=== PATIENT | female | born 1970 | race American Indian/Alaskan Native ===

== ENCOUNTER 2021-05-28 20:46 | Emergency (ER) | payer SELFPAY ==
[2021-05-28] MEDS ORDERED: IBUPROFEN 800 MG TAB PO ONE (23:10)
[2021-05-28] MEDS ORDERED: AMOXICILLIN/K CLAV 875/125MG TAB PO ONE (23:10)
[2021-05-28] MEDS ORDERED: dexAMETHasone 20 MG/5 ML VIAL IM ONE (23:10)
--- NOTE | 2021-05-28 23:17 | Emergency Department Report ---
ED General Adult HPI - General Chief complaint: Sore Throat Stated complaint: SORE THROAT Time Seen by Provider: 05/28/21 23:10 Source: patient Mode of arrival: Ambulatory Limitations: No Limitations - History of Present Illness Initial comments: Patient 50-year-old female who presents for sore throat with dysphagia x2 days. Patient denies fever has chills however. No nausea, there is no vomiting there is no ear pain. She does endorse sinus congestion with clear rhinorrhea.. As are exacerbated by swallowing. Symptoms are relieved by nothing tried. There is no cough no wheezing no stridor. No abdominal pain no nausea vomiting. Severity scale (0 -10): 9 - Related Data Previous Rx's Medication Instructions Recorded Last Taken Type Amoxicillin/Potassium Clav 1 each PO BID 7 Days #14 tablet 05/28/21 Unknown Rx [Augmentin 875-125 Tablet] Ibuprofen [Motrin 800 MG tab] 800 mg PO Q8HR PRN #30 tablet 05/28/21 Unknown Rx Allergies Allergy/AdvReac Type Severity Reaction Status Date / Time No Known Allergies Allergy Unverified 05/28/21 20:55 ED Review of Systems ROS: Stated complaint: SORE THROAT Other details as noted in HPI Constitutional: chills Eyes: denies: eye pain, eye discharge, vision change ENT: throat pain, congestion. denies: ear pain Respiratory: denies: cough, shortness of breath, wheezing Cardiovascular: denies: chest pain, palpitations Endocrine: no symptoms reported Gastrointestinal: denies: abdominal pain, nausea, diarrhea Genitourinary: denies: urgency, dysuria, discharge Musculoskeletal: denies: back pain, joint swelling, arthralgia Skin: denies: rash, lesions Neurological: denies: headache, weakness, paresthesias, vertigo Psychiatric: denies: anxiety, depression Hematological/Lymphatic: denies: easy bleeding, easy bruising ED Past Medical Hx - Medications Home Medications: Home Medications Medication Instructions Recorded Confirmed Last Taken Type Amoxicillin/Potassium Clav 1 each PO BID 7 Days #14 tablet 05/28/21 Unknown Rx [Augmentin 875-125 Tablet] Ibuprofen [Motrin 800 MG tab] 800 mg PO Q8HR PRN #30 tablet 05/28/21 Unknown Rx ED Physical Exam - General Limitations: No Limitations General appearance: alert, in no apparent distress - Head Head exam: Present: normocephalic, normal inspection - Eye Eye exam: Present: PERRL, EOMI. Absent: conjunctival injection, nystagmus Pupils: Present: normal accommodation - ENT ENT exam: Present: mucous membranes moist, TM's normal bilaterally, normal external ear exam - Expanded ENT Exam Expanded Throat exam: Positive: tonsillar erythema, tonsillomegaly, tonsillar exudate, other (uvula midline no lesions no peritonsilar abscess airway is patent ). Negative: R peritonsillar mass, L peritonsillar mass - Neck Neck exam: Present: normal inspection, full ROM, lymphadenopathy. Absent: tenderness, meningismus, thyromegaly - Respiratory Respiratory exam: Absent: respiratory distress, wheezes, stridor, chest wall tenderness - Cardiovascular Cardiovascular Exam: Present: regular rate, normal rhythm, normal heart sounds. Absent: systolic murmur, diastolic murmur, rubs, gallop - GI/Abdominal GI/Abdominal exam: Present: soft, normal bowel sounds. Absent: distended, tenderness - Rectal Rectal exam: Present: deferred - Extremities Exam Extremities exam: Present: normal inspection, full ROM - Back Exam Back exam: Present: normal inspection, full ROM. Absent: CVA tenderness (R), CVA tenderness (L) - Neurological Exam Neurological exam: Present: alert, oriented X3 - Psychiatric Psychiatric exam: Present: normal affect, normal mood - Skin Skin exam: Present: warm, dry, intact, normal color. Absent: rash ED Course Vital Signs 05/28/21 20:53 Temperature 99.8 F H Pulse Rate 81 Respiratory 18 Rate Blood Pressure 169/92 [Left] O2 Sat by Pulse 98 Oximetry ED Medical Decision Making - Medical Decision Making This is pharyngitis, patient declines rapid strep test. Plan DC to home, NSAIDs as needed pain hydrate as directed, follow-up with your doctor in 2 to 3 days. Patient verbalized agreement and understanding with discharge plan. Patient DC'd home in stable condition at this time. Critical care attestation.: If time is entered above; I have spent that time in minutes in the direct care of this critically ill patient, excluding procedure time. ED Disposition Clinical Impression: Pharyngitis Qualifiers: Pharyngitis/tonsillitis etiology: unspecified etiology Qualified Code(s): J02.9 - Acute pharyngitis, unspecified Disposition: 01 HOME / SELF CARE / HOMELESS Is pt being admited?: No Does the pt Need Aspirin: No Condition: Stable Instructions: Pharyngitis Additional Instructions: Take medications as prescribed, follow-up with your doctor in 2 to 3 days. Prescriptions: Amoxicillin/Potassium Clav [Augmentin 875-125 Tablet] 1 each PO BID 7 Days #14 tablet Ibuprofen [Motrin 800 MG tab] 800 mg PO Q8HR PRN #30 tablet PRN Reason: pain Referrals: JACINDA MORALES MD [Staff Physician] - 3-5 Days Forms: Work/School Release Form(ED) Time of Disposition: 23:17
[2021-05-29] VITALS: BP 152/87
== END 2021-05-28 23:58 | disposition home or self-care (01) ==
LOC: ED 20:46
DX: J02.9 Acute pharyngitis, unspecified (principal); Z79.899 Other long term (current) drug therapy
CPT/HCPCS: 96372; 99282; J1100

== ENCOUNTER 2021-07-12 21:24 | Inpatient (IN) | payer SELFPAY ==
[2021-07-12] MEDS ORDERED: HEPARIN 10,000 UNITS/10 ML VIAL IV ONE (21:27)
[2021-07-12] MEDS ORDERED: HEPARIN 10,000 UNITS/10 ML VIAL IV PRN (21:27)
[2021-07-12] MEDS ORDERED: SODIUM CHLORIDE 0.9% 500 ML 500 ML IV ONE (21:29)
[2021-07-12] MEDS ORDERED: MORPHINE 4 MG/1 ML INJ IV ONE (21:29)
--- NOTE | 2021-07-12 21:34 | Emergency Department Report ---
ED Chest Pain HPI - General Chief Complaint: Chest Pain Stated Complaint: CHEST PAIN Time Seen by Provider: 07/12/21 21:26 Source: patient, EMS (Verbal report received from emergency medical services. EMS documentation not available at time of chart dictation ), RN notes reviewed Mode of arrival: Stretcher Limitations: No Limitations - History of Present Illness Initial Comments: The patient was evaluated in the emergency department for symptoms described in the history of present illness. He/she was evaluated in the context of the global COVID-19 pandemic, which necessitated consideration that the patient might be at risk for infection with the virus that causes COVID-19. Institutional protocols and algorithms that pertain to the evaluation of patients at risk for COVID-19 are in a state of rapid change based on information released by regulatory bodies including the CDC and federal and state organizations. These policies and algorithms were followed during the patient's care in the emergency department. Please note that these policies, procedures and recommendations changed on a rapid basis. This patient is a 50-year-old female who reports that she is not , who denies chronic medical conditions, who is brought to the hospital by emergency medical services with complaint of central chest pain that radiates to the left neck. As per EMS verbal report, prehospital EKGs initially not consistent with STEMI. Patient has persistent pain, so EMS obtains additional prehospital EKG, last prehospital EKG is consistent with STEMI, completed at 21: 21 The EKG is transmitted to our fork assembler, Dr. Valerio. He agrees with activation of the cardiac catheterization lab. EMS provided this patient with aspirin nitroglycerin in the field, prior to development of inferior wall STEMI on serial EKGs. Cardiology recommended 600 mg of Plavix, as well as heparin. Extensive discussion had with patient regarding nature and diagnosis of STEMI, and time sensitive nature. Multiple discussions were had with the patient by myself, and by nursing team, regarding importance of cardiac catheterization in this particular disease context. Specific risks of refusing cardiac catheterization, which patient is initially considering, including , disability, paralysis, loss of quality of life and permanent cardiac disability were discussed with the patient who articulated understanding in her own words. Patient admitted to the medical service under the care of Dr. Duncan, Critical care physician, Dr. Keys, will follow in consultation in the critical care unit. Complaint: chest pain -: Sudden Onset: during rest Pain Location: substernal, left chest Pain Radiation: neck Aspirin use within the Past 7 Days: (1) Yes (given aspirin by ems) - Related Data On Oral Contraceptives: No Previous Rx's Medication Instructions Recorded Last Taken Type Amoxicillin/Potassium Clav 1 each PO BID 7 Days #14 tablet 05/28/21 Unknown Rx [Augmentin 875-125 Tablet] Ibuprofen [Motrin 800 MG tab] 800 mg PO Q8HR PRN #30 tablet 05/28/21 Unknown Rx Allergies Allergy/AdvReac Type Severity Reaction Status Date / Time No Known Allergies Allergy Verified 07/12/21 21:32 Heart Score - HEART Score History: Highly suspicious EKG: Significant ST-depression Age: 45-65 Risk factors: No known risk factors Troponin: < normal limit HEART Score: 5 - EKG Read Time Time EKG Completed: 21:23 EKG Read Time: 23:23 ED Review of Systems ROS: Stated complaint: CHEST PAIN Other details as noted in HPI Constitutional: malaise ENT: denies: congestion Cardiovascular: chest pain Gastrointestinal: denies: abdominal pain, vomiting, hematemesis, melena, hematochezia Neurological: weakness Psychiatric: anxiety ED Past Medical Hx - Past Medical History Previous Medical History?: No - Medications Home Medications: Home Medications Medication Instructions Recorded Confirmed Last Taken Type Amoxicillin/Potassium Clav 1 each PO BID 7 Days #14 tablet 05/28/21 Unknown Rx [Augmentin 875-125 Tablet] Ibuprofen [Motrin 800 MG tab] 800 mg PO Q8HR PRN #30 tablet 05/28/21 Unknown Rx ED Physical Exam - General Limitations: No Limitations General appearance: alert, anxious, obese - Head Head exam: Present: atraumatic, normocephalic - Eye Eye exam: Present: normal appearance, EOMI. Absent: nystagmus - ENT ENT exam: Present: normal exam, normal orophraynx, mucous membranes moist, normal external ear exam - Neck Neck exam: Present: normal inspection, full ROM. Absent: tenderness, meningismus - Respiratory Respiratory exam: Present: normal lung sounds bilaterally. Absent: respiratory distress, wheezes, rales, rhonchi, stridor, decreased breath sounds - Cardiovascular Cardiovascular Exam: Present: regular rate, normal rhythm, normal heart sounds. Absent: bradycardia, tachycardia, irregular rhythm, systolic murmur, diastolic murmur, rubs, gallop - GI/Abdominal GI/Abdominal exam: Present: soft. Absent: distended, tenderness, guarding, rebound, rigid, pulsatile mass - Extremities Exam Extremities exam: Present: normal inspection, full ROM, other (2+ pulses noted in the bilateral upper and lower extremities. There is no palpable cord. negative Homans sign. Muscular compartments are soft. The pelvis is stable.). Absent: pedal edema, calf tenderness - Back Exam Back exam: Present: normal inspection. Absent: tenderness, CVA tenderness (R), CVA tenderness (L), paraspinal tenderness, vertebral tenderness - Neurological Exam Neurological exam: Present: alert, oriented X3, other (No facial droop. Tongue midline. Extraocular movements intact bilaterally. Facial sensation intact to light touch in V1, V2, V3 distribution bilaterally. 5 and a 5 strength in 4 extremities. Sensation intact to light touch in 4 extremities.) - Psychiatric Psychiatric exam: Present: anxious - Skin Skin exam: Present: warm, dry, intact, normal color. Absent: rash ED Course Vital Signs 07/12/21 21:32 Temperature 98.1 F Pulse Rate 78 Respiratory 18 Rate Blood Pressure 134/94 [Left] O2 Sat by Pulse 98 Oximetry SUKH score - Sukh Score Age > 65: (0) No Aspirin use within the Past 7 Days: (1) Yes 3 or more CAD Risk Factors: (0) No 2 or more Angina events in past 24 hrs: (1) Yes Known CAD with more than 50% Stenosis: (0) No Elevated Cardiac Markers: (0) No ST Deviation Greater than 0.5mm: (1) Yes SUKH Score: 3 ED Medical Decision Making - Lab Data Result diagrams: 07/12/21 21:43 07/12/21 21:43 Vital Signs 07/12/21 21:32 Temperature 98.1 F Pulse Rate 78 Respiratory 18 Rate Blood Pressure 134/94 [Left] O2 Sat by Pulse 98 Oximetry Vital Signs 07/12/21 21:32 Temperature 98.1 F Pulse Rate 78 Respiratory 18 Rate Blood Pressure 134/94 [Left] O2 Sat by Pulse 98 Oximetry Lab Results 07/12/21 07/12/21 07/12/21 Range/Units 21:43 21:43 21:43 WBC 5.2 (4.5-11.0) K/mm3 RBC 4.97 (3.65-5.03) M/mm3 Hgb 11.8 (10.1-14.3) gm/dl Hct 38.8 (30.3-42.9) % MCV 78 L (79-97) fl MCH 24 L (28-32) pg MCHC 30 (30-34) % RDW 18.2 H (13.2-15.2) % Plt Count 225 (140-440) K/mm3 Lymph % (Auto) 35.7 H (13.4-35.0) % Coffee % (Auto) 7.2 (0.0-7.3) % Eos % (Auto) 3.0 (0.0-4.3) % Baso % (Auto) 0.9 (0.0-1.8) % Lymph # (Auto) 1.8 (1.2-5.4) K/mm3 Coffee # (Auto) 0.4 (0.0-0.8) K/mm3 Eos # (Auto) 0.2 (0.0-0.4) K/mm3 Baso # (Auto) 0.0 (0.0-0.1) K/mm3 Seg Neutrophils % 53.2 (40.0-70.0) % Seg Neutrophils # 2.7 (1.8-7.7) K/mm3 PT 14.4 (12.2-14.9) Sec. INR 1.01 (0.87-1.13) APTT 33.7 (24.2-36.6) Sec. Sodium 144 (137-145) mmol/L Potassium 3.5 L (3.6-5.0) mmol/L Chloride 107.1 H (98-107) mmol/L Carbon Dioxide 25 (22-30) mmol/L Anion Gap 15 mmol/L BUN 9 (7-17) mg/dL Creatinine 0.7 (0.6-1.2) mg/dL Estimated GFR > 60 ml/min BUN/Creatinine Ratio 13 % Glucose 89 (65-100) mg/dL Calcium 8.9 (8.4-10.2) mg/dL Total Bilirubin 0.30 (0.1-1.2) mg/dL AST 49 H (5-40) units/L ALT 47 (7-56) units/L Alkaline Phosphatase 73 (35-129) units/L Total Creatine Kinase 85 (30-135) units/L CK-MB (CK-2) 1.4 (0.0-4.0) ng/mL CK-MB (CK-2) Rel Index 1.6 (0-4) Troponin T < 0.010 (0.00-0.029) ng/mL Total Protein 7.2 (6.3-8.2) g/dL Albumin 3.9 (3.9-5) g/dL Albumin/Globulin Ratio 1.2 % HCG, Quant (0-4) mIU/mL Blood Type Antibody Screen 07/12/21 07/12/21 Range/Units 21:43 21:43 WBC (4.5-11.0) K/mm3 RBC (3.65-5.03) M/mm3 Hgb (10.1-14.3) gm/dl Hct (30.3-42.9) % MCV (79-97) fl MCH (28-32) pg MCHC (30-34) % RDW (13.2-15.2) % Plt Count (140-440) K/mm3 Lymph % (Auto) (13.4-35.0) % Coffee % (Auto) (0.0-7.3) % Eos % (Auto) (0.0-4.3) % Baso % (Auto) (0.0-1.8) % Lymph # (Auto) (1.2-5.4) K/mm3 Coffee # (Auto) (0.0-0.8) K/mm3 Eos # (Auto) (0.0-0.4) K/mm3 Baso # (Auto) (0.0-0.1) K/mm3 Seg Neutrophils % (40.0-70.0) % Seg Neutrophils # (1.8-7.7) K/mm3 PT (12.2-14.9) Sec. INR (0.87-1.13) APTT (24.2-36.6) Sec. Sodium (137-145) mmol/L Potassium (3.6-5.0) mmol/L Chloride (98-107) mmol/L Carbon Dioxide (22-30) mmol/L Anion Gap mmol/L BUN (7-17) mg/dL Creatinine (0.6-1.2) mg/dL Estimated GFR ml/min BUN/Creatinine Ratio % Glucose (65-100) mg/dL Calcium (8.4-10.2) mg/dL Total Bilirubin (0.1-1.2) mg/dL AST (5-40) units/L ALT (7-56) units/L Alkaline Phosphatase (35-129) units/L Total Creatine Kinase (30-135) units/L CK-MB (CK-2) (0.0-4.0) ng/mL CK-MB (CK-2) Rel Index (0-4) Troponin T (0.00-0.029) ng/mL Total Protein (6.3-8.2) g/dL Albumin (3.9-5) g/dL Albumin/Globulin Ratio % HCG, Quant < 2 (0-4) mIU/mL Blood Type A POSITIVE Antibody Screen Negative - EKG Data -: EKG Interpreted by Ok EKG shows normal: sinus rhythm - EKG Data When compared to previous EKG there are: previous EKG unavailable Interpretation: acute AL 07/12/21 21:33 The EKG is interpreted at 2122 The EKG is consistent with STEMI. Sinus rhythm, 71 bpm. Normal axis, normal P wave axis, motion artifact. Inferior wall STEMI. Questionable lateral wall involvement. No prior for comparison - Radiology Data Radiology results: report reviewed, image reviewed CHEST 1 VIEW INDICATION / CLINICAL INFORMATION: chest pain STUDY TIME: 2130 COMPARISON: 10/05/2009 FINDINGS: SUPPORT DEVICES: None HEART / MEDIASTINUM: Heart size appears within normal limits. Large calcified right peritracheal node is seen in calcified right hilar nodes are noted, findings unchanged. LUNGS / PLEURA: No significant acute pulmonary or pleural abnormality. No pneumothorax. ADDITIONAL FINDINGS: No significant additional findings. Signer Name: Flash Reaves MD Signed: 07/12/2021 8:58 PM Workstation Name: [id number] - Medical Decision Making Differential diagnosis, including but not limited to: STEMI, Prinzmetal angina, pericarditis, myocarditis Assessment and plan: 50-year-old female with probable inferior wall STEMI. Patient given aspirin and nitroglycerin by EMS in the field. Blood pressure acceptable at this time. Medicate with Plavix, heparin, morphine and Zofran. Start heparin drip. Admit patient to the critical care unit after cardiac evaluation. Patient en route to the cardiac catheterization lab. Laboratory studies have not resulted as of this time. Given time sensitive nature of STEMI, we will defer to the inpatient team to follow-up on laboratory studies. Patient endorsed reticence to receive cardiac catheterization. Myself and multiple nurses discussed the importance of cardiac catheterization in the context of STEMI to this patient. Also discussed the time sensitive nature of STEMI. At this point time, it appears that the patient is agreeable to catheterization. Critical Care Time: Yes Critical care time in (mins) excluding proc time.: 35 Critical care attestation.: If time is entered above; I have spent that time in minutes in the direct care of this critically ill patient, excluding procedure time. ED Disposition Clinical Impression: STEMI (ST elevation myocardial infarction) Disposition: ADMITTED INPATIENT Is pt being admited?: Yes Does the pt Need Aspirin: No (given by ems) Condition: Critical
[2021-07-12] MEDS: CLOPIDOGREL 300 MG TAB PO ONE (21:44)
[2021-07-12] MEDS: ONDANSETRON 4 MG/2 ML INJ IV ONE (21:44)
[2021-07-12] MEDS ORDERED: MORPHINE 2 MG/1 ML INJ IV PRN (21:51)
[2021-07-12] MEDS ORDERED: NITROGLYCERIN 0.4 MG TAB SUBL SL PRN (21:51)
[2021-07-12] MEDS ORDERED: ALBUTEROL 2.5 MG/3 ML NEBU IH PRN (21:51)
[2021-07-12] MEDS ORDERED: HYDROmorphone 1 MG/1 ML INJ IV PRN (21:51)
[2021-07-12] MEDS ORDERED: ONDANSETRON 4 MG/2 ML INJ IV PRN (21:51)
[2021-07-12] MEDS ORDERED: ACETAMINOPHEN 325 MG TAB PO PRN (21:51)
--- NOTE | 2021-07-12 21:59 | History and Physical Report ---
History of Present Illness Date of examination: 07/12/21 Date of admission: 07/12/21 Chief complaint: Chest pain History of present illness: 50 years old female with unknown past medical history was brought to the emergency room because of crushing chest pain. Patient complaining of 10/10 left-sided chest pain which is crushing in nature for last couple of minutes. central chest pain that radiates to the left neck. The EKG is consistent with STEMI. Sinus rhythm, 71 bpm. Normal axis, normal P wave axis, motion artifact. Inferior wall STEMI. Questionable lateral wall involvement. No prior for comparison Code STEMI was called patient EKG shows suggest the above ST elevation SD in the inferior lead. Subsequently Case discussed with on-call cardiology Dr. mega ramirez. Subsequently patient was brought to the Mine [facility] and patient is status post cardiac cath which shows normal coronaries as per cardiology Medications and Allergies Allergies Allergy/AdvReac Type Severity Reaction Status Date / Time No Known Allergies Allergy Verified 07/12/21 21:32 Home Medications Medication Instructions Recorded Confirmed Last Taken Type Amoxicillin/Potassium Clav 1 each PO BID 7 Days #14 tablet 05/28/21 Unknown Rx [Augmentin 875-125 Tablet] Ibuprofen [Motrin 800 MG tab] 800 mg PO Q8HR PRN #30 tablet 05/28/21 Unknown Rx Active Meds: Active Medications Acetaminophen (Acetaminophen 325 Mg Tab) 650 mg PO Q4H PRN PRN Reason: Pain MILD(1-3)/Fever >100.5/HUGHES Albuterol (Albuterol 2.5 Mg/3 Ml Nebu) 2.5 mg IH Q3HRT PRN PRN Reason: Shortness Of Breath Albuterol/Ipratropium (Ipratropium/Albuterol Sulfate 3 Ml Ampul.Neb) 1 ampul IH Q6HRT OK Atorvastatin Calcium (Atorvastatin 40 Mg Tab) 40 mg PO QHS OK Heparin Sodium (Porcine) (Heparin 10,000 Units/10 Ml Vial) 0 unit IV Q6H PRN; Protocol PRN Reason: Anti-Xa Assay less than 0.1 un Hydromorphone HCl (Hydromorphone 1 Mg/1 Ml Inj) 0.5 mg IV Q3H PRN PRN Reason: Pain , Severe (7-10) Heparin Sodium/Sodium Chloride (Heparin/ 0.45% Nacl-25,000 Unit/500 Ml) 25,000 unit in 500 mls @ 20 mls/hr IV TITRATE OK; Protocol Last Admin: 07/12/21 21:45 Dose: 1,000 units/hr, 20 mls/hr Sodium Chloride (Nacl 0.9% 500 Ml) 500 mls @ 999 mls/hr IV ONCE ONE Stop: 07/12/21 21:59 Last Admin: 07/12/21 21:44 Dose: 999 mls/hr Sodium Chloride (Nacl 0.9% 1000 Ml) 1,000 mls @ 100 mls/hr IV DIRECT OK Morphine Sulfate (Morphine 2 Mg/1 Ml Inj) 2 mg IV Q4H PRN PRN Reason: Pain, Moderate (4-6) Nitroglycerin (Nitroglycerin 0.4 Mg Tab Subl) 0.4 mg SL .Q5MIN PRN PRN Reason: Chest Pain Ondansetron HCl (Ondansetron 4 Mg/2 Ml Inj) 4 mg IV Q8H PRN PRN Reason: Nausea And Vomiting Review of Systems All systems: negative Cardiovascular: chest pain, shortness of breath Exam - Constitutional Vitals: Temp Pulse Resp BP Pulse Ox 98.1 F 78 18 134/94 98 07/12/21 21:32 07/12/21 21:32 07/12/21 21:32 07/12/21 21:32 07/12/21 21:32 General appearance: Present: no acute distress, well-nourished - EENT Eyes: Present: PERRL ENT: hearing intact, clear oral mucosa - Neck Neck: Present: supple, normal ROM - Respiratory Respiratory effort: normal Respiratory: bilateral: CTA - Cardiovascular Heart Sounds: Present: S1 & S2. Absent: rub, click - Extremities Extremities: pulses symmetrical, No edema Peripheral Pulses: within normal limits - Abdominal General gastrointestinal: Present: soft, non-tender, non-distended, normal bowel sounds Female genitourinary: Present: normal - Integumentary Integumentary: Present: clear, warm, dry - Musculoskeletal Musculoskeletal: gait normal, strength equal bilaterally - Psychiatric Psychiatric: appropriate mood/affect, intact judgment & insight - Neurologic Neurologic: CNII-XII intact, moves all extremities HEART Score - HEART Score EKG: Significant ST-depression Age: 45-65 Risk factors: No known risk factors Results - Labs CBC & Chem 7: 07/12/21 21:43 07/12/21 21:43 Assessment and Plan VTE prophylaxis?: Chemical Plan of care discussed with patient/family: Yes - Patient Problems (1) STEMI (ST elevation myocardial infarction) Current Visit: Yes Status: Acute Plan to address problem: Admit the patient to the critical care unit. NPO. Normal saline at the rate of 100 cc/h. Plavix 600 mg p.o. x1 dose. Patient is on heparin drip. Patient is status post emergent heart cath showed normal coronaries. Cardiology evaluation we also consult critical care evaluation. Follow serial cardiac enzyme. Echocardiogram. (2) DVT prophylaxis Current Visit: Yes Status: Acute Plan to address problem: Heparin drip for DVT prophylaxis. Pepcid 20 mg p.o. twice daily for GI prophylaxis. Patient is a full code
[2021-07-12] MEDS ORDERED: HEPARIN/ 0.45% NACL DRIP 25,000 UNIT/500 ML BAG IV SCH (22:00)
[2021-07-12] MEDS ORDERED: SODIUM CHLORIDE 0.9% 1000 ML 1,000 ML IV SCH (22:00)
[2021-07-12] MEDS ORDERED: NITROGLYCERIN SYRINGE 3 ML ONE (22:02)
[2021-07-12] MEDS ORDERED: LIDOCAINE (2%) 20 MG/1 ML VIAL 20 ML MDV INFILTRATI ONE (22:02)
[2021-07-12] MEDS ORDERED: MIDAZOLAM 2 MG/2 ML INJ ONE (22:02)
[2021-07-12] MEDS ORDERED: VERAPAMIL 5 MG/2 ML INJ ONE (22:02)
[2021-07-12] MEDS ORDERED: HEPARIN/NS 5000 UNIT/500ML 1,000 ML IR ONE (22:02)
[2021-07-12] MEDS ORDERED: HEPARIN 10,000 UNITS/10 ML VIAL ONE (22:02)
[2021-07-12] MEDS ORDERED: fentaNYL 100 MCG/2 ML INJ ONE (22:02)
--- NOTE | 2021-07-12 22:02 | XRay Report ---
CHEST 1 VIEW INDICATION / CLINICAL INFORMATION: chest pain STUDY TIME: 2130 COMPARISON: 10/05/2009 FINDINGS: SUPPORT DEVICES: None HEART / MEDIASTINUM: Heart size appears within normal limits. Large calcified right peritracheal node is seen in calcified right hilar nodes are noted, findings unchanged. LUNGS / PLEURA: No significant acute pulmonary or pleural abnormality. No pneumothorax. ADDITIONAL FINDINGS: No significant additional findings. Signer Name: Flash Reaves MD Signed: 07/12/2021 9:58 PM Workstation Name: [id number]
[2021-07-12 22:16] LABS: Basophils % (Auto) 0.9 % (0.0-1.8); Eosinophils # (Auto) 0.2 K/mm3 (0.0-0.4); Lymphocytes # (Auto) 1.8 K/mm3 (1.2-5.4); Lymphocytes % (Auto) 35.7 % (13.4-35.0); Mean Corpuscular HGB Conc 30 % (30-34); Mean Corpuscular Volume 78 fl (79-97); Monocytes # (Auto) 0.4 K/mm3 (0.0-0.8); Monocytes % (Auto) 7.2 % (0.0-7.3); Platelet Count 225 K/mm3 (140-440); Red Blood Count 4.97 M/mm3 (3.65-5.03); Red Cell Distribution Width 18.2 % (13.2-15.2)
[2021-07-12 22:19] LABS: Hematocrit 38.8 % (30.3-42.9); Hemoglobin 11.8 gm/dl (10.1-14.3)
[2021-07-12] MEDS ORDERED: SODIUM CHLORIDE 0.9% 500 ML 500 ML ONE (22:29)
[2021-07-12 22:30] LABS: INR 1.01 (0.87-1.13); Partial Thromboplastin Time 33.7 Sec. (24.2-36.6)
[2021-07-12] MEDS ORDERED: fentaNYL 100 MCG/2 ML INJ IV ONE ×2 (22:30→22:34)
[2021-07-12] MEDS ORDERED: CLOPIDOGREL 300 MG TAB ONE (22:32)
[2021-07-12] MEDS ORDERED: MIDAZOLAM 2 MG/2 ML INJ IV ONE (22:34)
[2021-07-12 22:45] LABS: Alanine Aminotransferase 47 units/L (7-56); Albumin 3.9 g/dL (3.9-5); Blood Urea Nitrogen 9 mg/dL (7-17); Calcium 8.9 mg/dL (8.4-10.2); Creatine Kinase MB 1.4 ng/mL (0.0-4.0); Hemolysis Index 7
[2021-07-12 22:52] LABS: BUN/Creatinine Ratio 13
[2021-07-12] MEDS ORDERED: traMADol 50 MG TAB PO PRN (23:01)
--- NOTE | 2021-07-12 23:06 | Consultation ---
History of Present Illness Consult date: 07/12/21 Consult reason: chest pain History of present illness: 50-year-old woman with no prior cardiac history who presented to the emergency room with chest pain, ECG showed ST elevations in the inferolateral leads. STEMI protocol was activated. Emergency cardiac catheterization revealed angiographically normal coronary arteries, normal left ventricular systolic function with ejection fraction greater than 65%. Past History Past Medical History: No medical history Medications and Allergies Allergies Allergy/AdvReac Type Severity Reaction Status Date / Time No Known Allergies Allergy Verified 07/12/21 21:32 Home Medications Medication Instructions Recorded Confirmed Last Taken Type Amoxicillin/Potassium Clav 1 each PO BID 7 Days #14 tablet 05/28/21 Unknown Rx [Augmentin 875-125 Tablet] Ibuprofen [Motrin 800 MG tab] 800 mg PO Q8HR PRN #30 tablet 05/28/21 Unknown Rx Active Meds: Active Medications Acetaminophen (Acetaminophen 325 Mg Tab) 650 mg PO Q4H PRN PRN Reason: Pain MILD(1-3)/Fever >100.5/HUGHES Albuterol (Albuterol 2.5 Mg/3 Ml Nebu) 2.5 mg IH Q3HRT PRN PRN Reason: Shortness Of Breath Albuterol/Ipratropium (Ipratropium/Albuterol Sulfate 3 Ml Ampul.Neb) 1 ampul IH Q6HRT OK Atorvastatin Calcium (Atorvastatin 40 Mg Tab) 40 mg PO QHS OK Hydromorphone HCl (Hydromorphone 1 Mg/1 Ml Inj) 0.5 mg IV Q3H PRN PRN Reason: Pain , Severe (7-10) Sodium Chloride (Nacl 0.9% 1000 Ml) 1,000 mls @ 100 mls/hr IV DIRECT OK Stop: 07/13/21 03:59 Morphine Sulfate (Morphine 2 Mg/1 Ml Inj) 2 mg IV Q4H PRN PRN Reason: Pain, Moderate (4-6) Nitroglycerin (Nitroglycerin 0.4 Mg Tab Subl) 0.4 mg SL .Q5MIN PRN PRN Reason: Chest Pain Ondansetron HCl (Ondansetron 4 Mg/2 Ml Inj) 4 mg IV Q8H PRN PRN Reason: Nausea And Vomiting Tramadol HCl (Tramadol 50 Mg Tab) 50 mg PO Q4H PRN PRN Reason: Pain, Mild (1-3) Review of Systems Cardiovascular: chest pain, no orthopnea, no palpitations, no rapid/irregular heart beat, no edema, no syncope, no lightheadedness, no shortness of breath Physical Examination Vital Signs Temp Pulse Resp BP Pulse Ox 98.1 F 78 18 134/94 98 07/12/21 21:32 07/12/21 21:32 07/12/21 21:32 07/12/21 21:32 07/12/21 21:32 General appearance: no acute distress HEENT: Positive: PERRL Neck: Positive: neck supple Cardiac: Positive: Reg Rate and Rhythm Lungs: Positive: clear to auscultation Neuro: Positive: Grossly Intact Abdomen: Positive: Soft Female genitourinary: deferred Skin: Positive: Clear Extremities: Absent: edema Results 07/12/21 21:43 07/12/21 21:43 Cardiac Enzymes 07/12/21 Range/Units 21:43 AST 49 H (5-40) units/L CK-MB (CK-2) 1.4 (0.0-4.0) ng/mL Coagulation 07/12/21 Range/Units 21:43 PT 14.4 (12.2-14.9) Sec. INR 1.01 (0.87-1.13) APTT 33.7 (24.2-36.6) Sec. CBC 07/12/21 Range/Units 21:43 WBC 5.2 (4.5-11.0) K/mm3 RBC 4.97 (3.65-5.03) M/mm3 Hgb 11.8 (10.1-14.3) gm/dl Hct 38.8 (30.3-42.9) % Plt Count 225 (140-440) K/mm3 Lymph # (Auto) 1.8 (1.2-5.4) K/mm3 [place] # (Auto) 0.4 (0.0-0.8) K/mm3 Eos # (Auto) 0.2 (0.0-0.4) K/mm3 Baso # (Auto) 0.0 (0.0-0.1) K/mm3 Comprehensive Metabolic Panel 07/12/21 Range/Units 21:43 Sodium 144 (137-145) mmol/L Potassium 3.5 L (3.6-5.0) mmol/L Chloride 107.1 H (98-107) mmol/L Carbon Dioxide 25 (22-30) mmol/L BUN 9 (7-17) mg/dL Creatinine 0.7 (0.6-1.2) mg/dL Glucose 89 (65-100) mg/dL Calcium 8.9 (8.4-10.2) mg/dL AST 49 H (5-40) units/L ALT 47 (7-56) units/L Alkaline Phosphatase 73 (35-129) units/L Total Protein 7.2 (6.3-8.2) g/dL Albumin 3.9 (3.9-5) g/dL EKG interpretations - Telemetry EKG Rhythm: Sinus Rhythm (With inferolateral ST elevation) Assessment and Plan - Patient Problems (1) Chest pain Current Visit: Yes Status: Acute Plan to address problem: Patient presented with chest pain and abnormal ECG of inferolateral ST elevat ion. Cardiac catheterization revealed angiographically normal coronary arteries, suggesting false positive ECG findings. There are no prior ECGs for comparison. Patient will be recommended for overnight observation, check serial troponin levels, anticipate discharged tomorrow.
[2021-07-13 01:04] LABS: Creatine Kinase MB 7.1 ng/mL (0.0-4.0)
[2021-07-13 01:24] LABS: Chol/HDL Ratio 2.47 %
[2021-07-13 06:47] LABS: Creatine Kinase MB 47.3 ng/mL (0.0-4.0)
[2021-07-13 06:49] LABS: Blood Urea Nitrogen 8 mg/dL (7-17); Calcium 8.2 mg/dL (8.4-10.2); Hemolysis Index 7
[2021-07-13 06:51] LABS: BUN/Creatinine Ratio 20
[2021-07-13] MEDS ORDERED: POTASSIUM CHLORIDE ER 20 MEQ TAB PO SCH (09:00)
--- NOTE | 2021-07-13 11:42 | Electrocardiograph Report ---
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
--- NOTE | 2021-07-13 14:36 | Progress Note ---
Assessment and Plan - Patient Problems (1) Chest pain Current Visit: Yes Status: Acute Plan to address problem: Cardiac catheterization done emergently for inferolateral ST elevation showed no acute coronary obstructions. Cardiac catheterization sites at the right wrist and right groin are well-healed with no significant hematoma. Today, the serial troponin levels have risen to 0.39, and there is pseudonormalization of the inferolateral ST segment elevation. Suggestion is of transient myocardial infarction, consider transient coronary spasm versus transient intracoronary thrombosis. We will treat the patient with baby aspirin, Plavix, beta-blockers and long- acting nitrates. Okay for transfer to telemetry and anticipate discharge tomorrow. Subjective Date of service: 07/13/21 Interval history: Patient is comfortable, no acute distress. Her troponin level was ultimately elevated at 0.36, positive for myocardial infarction. In addition, follow-up ECG today shows normalization of the inferolateral ST elevation. Objective Vital Signs Temp Pulse Resp BP BP Pulse Ox 07/13/21 12:00 97.8 F 07/13/21 08:41 100 07/13/21 08:00 97.9 F 07/13/21 06:30 53 L 10 L 132/84 99 07/13/21 06:00 55 L 11 L 116/73 99 07/13/21 05:30 58 L 13 116/73 100 07/13/21 05:00 57 L 12 116/73 100 07/13/21 04:30 59 L 13 117/70 100 07/13/21 04:00 58 L 12 117/70 98 07/13/21 03:30 57 L 12 124/77 99 07/13/21 03:25 96.9 F L 07/13/21 03:00 56 L 11 L 124/77 98 07/13/21 02:30 74 11 L 134/83 99 07/13/21 02:00 60 16 135/87 98 07/13/21 01:30 57 L 13 135/87 99 07/13/21 01:00 56 L 13 129/83 99 07/13/21 00:39 100 07/13/21 00:30 61 12 129/83 99 07/13/21 00:00 59 L 11 L 129/83 93 07/12/21 23:59 97.5 F L 07/12/21 23:30 62 10 L 99 07/12/21 23:28 100 07/12/21 21:32 98.1 F 78 18 134/94 98 - Physical Examination General: No Apparent Distress HEENT: Positive: PERRL Neck: Positive: neck supple Cardiac: Positive: Reg Rate and Rhythm Lungs: Positive: clear to auscultation Neuro: Positive: Grossly Intact Abdomen: Positive: Soft Skin: Positive: Clear Extremities: Absent: edema - Labs and Meds Cardiac Enzymes 07/12/21 07/13/21 07/13/21 Range/Units 21:43 00:32 05:49 AST 49 H (5-40) units/L CK-MB (CK-2) 1.4 7.1 H 47.3 H (0.0-4.0) ng/mL Coagulation 07/12/21 Range/Units 21:43 PT 14.4 (12.2-14.9) Sec. INR 1.01 (0.87-1.13) APTT 33.7 (24.2-36.6) Sec. Lipids 07/13/21 Range/Units 00:32 Triglycerides 57 (2-149) mg/dL Cholesterol 176 (50-199) mg/dL HDL Cholesterol 71 H (40-59) mg/dL Cholesterol/HDL Ratio 2.47 % CBC 07/12/21 Range/Units 21:43 WBC 5.2 (4.5-11.0) K/mm3 RBC 4.97 (3.65-5.03) M/mm3 Hgb 11.8 (10.1-14.3) gm/dl Hct 38.8 (30.3-42.9) % Plt Count 225 (140-440) K/mm3 Lymph # (Auto) 1.8 (1.2-5.4) K/mm3 [place] # (Auto) 0.4 (0.0-0.8) K/mm3 Eos # (Auto) 0.2 (0.0-0.4) K/mm3 Baso # (Auto) 0.0 (0.0-0.1) K/mm3 Comprehensive Metabolic Panel 07/12/21 07/13/21 Range/Units 21:43 05:49 Sodium 144 144 (137-145) mmol/L Potassium 3.5 L 3.4 L (3.6-5.0) mmol/L Chloride 107.1 H 108.2 H (98-107) mmol/L Carbon Dioxide 25 24 (22-30) mmol/L BUN 9 8 (7-17) mg/dL Creatinine 0.7 0.4 L (0.6-1.2) mg/dL Glucose 89 82 (65-100) mg/dL Calcium 8.9 8.2 L (8.4-10.2) mg/dL AST 49 H (5-40) units/L ALT 47 (7-56) units/L Alkaline Phosphatase 73 (35-129) units/L Total Protein 7.2 (6.3-8.2) g/dL Albumin 3.9 (3.9-5) g/dL
[2021-07-13] MEDS ORDERED: CLOPIDOGREL 300 MG TAB PO ONE (15:00)
--- NOTE | 2021-07-13 15:29 | Progress Note ---
<NANDA GLORIA - Last Filed: 07/13/21 15:40> Assessment and Plan Assessment and plan: This is a 50-year-old female with no known past medical history admitted for STEMI s/p emergent cardiac Cath Hospital Course to Date: 07/13: Patient remains stable on RA, denied any CP nor any discomfort. Patient stable for transfer to telemetry. Per Cardio okay to discharge patient tomorrow Assessment and Plan #STEMI (ST elevation myocardial infarction) #Chest pain- resolved - Presented with 03/22 CP - Per report EKG in the ED showed ST elevation - 07/12 Emergent Cardiac Cath showed no acute coronary obstructions. EF 65% - aspirin, Plavix, beta-blockers and long-acting nitrates per Cardio - Continue blood pressure monitor per protocol - Maintain SBP less than 160 #Hypokalemia - K repleted - Check mag and phosp - Continue to monitor and replace electrolytes as needed - Trend BMP #GI/DVT prophylaxis - PPI- pepcid - SCDs to bilateral lower extremities while in bed The high probability of a clinically significant, sudden or life threatening deterioration of the [Cardio, ] system(s) required my full and direct attention, intervention and personal management. The aggregate critical care time was [60] minutes. This time is in addition to time spent performing rep orted procedures but includes the following: [x] Data Review and interpretation [x] Patient assessment and monitoring of vital signs [x] Documentation [x] Medication orders and management Disposition Plan: ICU Total Time Spent with Patient (Minutes): 60 History Interval history: Patient seen and examined at the bedside. Fully AAO and on RA. Denied any pain nor any discomfort at this nahid. Cardiac cath sites are unremarkable with no signs of any complications. JIM overnight Hospitalist Physical - Constitutional Vitals: Temp Pulse Resp BP Pulse Ox 97.8 F 53 L 10 L 132/84 100 07/13/21 12:00 07/13/21 06:30 07/13/21 06:30 07/13/21 06:30 07/13/21 08:41 General appearance: Present: no acute distress, well-nourished - EENT Eyes: Present: PERRL, EOM intact ENT: hearing intact - Neck Neck: Present: normal ROM - Respiratory Respiratory effort: normal Respiratory: bilateral: CTA - Cardiovascular Rhythm: regular Heart Sounds: Present: S1 & S2 - Extremities Extremities: no ischemia, pulses intact, pulses symmetrical Extremity abnormal: edema Peripheral Pulses: within normal limits - Abdominal General gastrointestinal: soft, non-tender, non-distended, normal bowel sounds - Integumentary Integumentary: Present: warm, dry - Psychiatric Psychiatric: appropriate mood/affect, cooperative - Neurologic Neurologic: CNII-XII intact, moves all extremities - Allied Health Allied health notes reviewed: nursing HEART Score - HEART Score EKG: Significant ST-depression Age: 45-65 Risk factors: No known risk factors Troponin: Troponin T 0.362 ng/mL (0.00-0.029) H* D 07/13/21 05:49 Troponin: < normal limit Results - Labs CBC & Chem 7: 07/12/21 21:43 07/13/21 05:49 Labs: Laboratory Last Values WBC 5.2 K/mm3 (4.5-11.0) 07/12/21 21:43 RBC 4.97 M/mm3 (3.65-5.03) 07/12/21 21:43 Hgb 11.8 gm/dl (10.1-14.3) 07/12/21 21:43 Hct 38.8 % (30.3-42.9) 07/12/21 21:43 MCV 78 fl (79-97) L 07/12/21 21:43 MCH 24 pg (28-32) L 07/12/21 21:43 MCHC 30 % (30-34) 07/12/21 21:43 RDW 18.2 % (13.2-15.2) H 07/12/21 21:43 Plt Count 225 K/mm3 (140-440) 07/12/21 21:43 Lymph % (Auto) 35.7 % (13.4-35.0) H 07/12/21 21:43 [place] % (Auto) 7.2 % (0.0-7.3) 07/12/21 21:43 Eos % (Auto) 3.0 % (0.0-4.3) 07/12/21 21:43 Baso % (Auto) 0.9 % (0.0-1.8) 07/12/21 21:43 Lymph # (Auto) 1.8 K/mm3 (1.2-5.4) 07/12/21 21:43 [place] # (Auto) 0.4 K/mm3 (0.0-0.8) 07/12/21 21:43 Eos # (Auto) 0.2 K/mm3 (0.0-0.4) 07/12/21 21:43 Baso # (Auto) 0.0 K/mm3 (0.0-0.1) 07/12/21 21:43 Seg Neutrophils % 53.2 % (40.0-70.0) 07/12/21 21:43 Seg Neutrophils # 2.7 K/mm3 (1.8-7.7) 07/12/21 21:43 PT 14.4 Sec. (12.2-14.9) 07/12/21 21:43 INR 1.01 (0.87-1.13) 07/12/21 21:43 APTT 33.7 Sec. (24.2-36.6) 07/12/21 21:43 Sodium 144 mmol/L (137-145) 07/13/21 05:49 Potassium 3.4 mmol/L (3.6-5.0) L 07/13/21 05:49 Chloride 108.2 mmol/L (98-107) H 07/13/21 05:49 Carbon Dioxide 24 mmol/L (22-30) 07/13/21 05:49 Anion Gap 15 mmol/L 07/13/21 05:49 BUN 8 mg/dL (7-17) 07/13/21 05:49 Creatinine 0.4 mg/dL (0.6-1.2) L 07/13/21 05:49 Estimated GFR > 60 ml/min 07/13/21 05:49 BUN/Creatinine Ratio 20 % 07/13/21 05:49 Glucose 82 mg/dL (65-100) 07/13/21 05:49 Calcium 8.2 mg/dL (8.4-10.2) L 07/13/21 05:49 Total Bilirubin 0.30 mg/dL (0.1-1.2) 07/12/21 21:43 AST 49 units/L (5-40) H 07/12/21 21:43 ALT 47 units/L (7-56) 07/12/21 21:43 Alkaline Phosphatase 73 units/L (35-129) 07/12/21 21:43 Total Creatine Kinase 389 units/L (30-135) H 07/13/21 05:49 CK-MB (CK-2) 47.3 ng/mL (0.0-4.0) H 07/13/21 05:49 CK-MB (CK-2) Rel Index 12.1 (0-4) H 07/13/21 05:49 Troponin T 0.362 ng/mL (0.00-0.029) H* D 07/13/21 05:49 Total Protein 7.2 g/dL (6.3-8.2) 07/12/21 21:43 Albumin 3.9 g/dL (3.9-5) 07/12/21 21:43 Albumin/Globulin Ratio 1.2 % 07/12/21 21:43 Triglycerides 57 mg/dL (2-149) 07/13/21 00:32 Cholesterol 176 mg/dL (50-199) 07/13/21 00:32 LDL Cholesterol Direct 105 mg/dL (50-130) 07/13/21 00:32 HDL Cholesterol 71 mg/dL (40-59) H 07/13/21 00:32 Cholesterol/HDL Ratio 2.47 % 07/13/21 00:32 HCG, Quant < 2 mIU/mL (0-4) 07/12/21 21:43 Blood Type A POSITIVE 07/12/21 21:43 Antibody Screen Negative 07/12/21 21:43 Active Medications - Current Medications Current Medications: Generic Name Dose Route Start Last Admin Trade Name Freq PRN Reason Stop Dose Admin Acetaminophen 650 mg 07/12/21 21:51 Acetaminophen 325 Mg Tab PO Q4H PRN Fever >100.5/HUGHES Albuterol 2.5 mg 07/12/21 21:51 Albuterol 2.5 Mg/3 Ml Nebu IH Q3HRT PRN Shortness Of Breath Albuterol/Ipratropium 1 ampul 07/13/21 02:00 Ipratropium/Albuterol Sulfate 3 Ml Ampul.Neb IH Q6HRT OK Aspirin 81 mg 07/13/21 15:00 Aspirin Ec 81 Mg Tab PO QDAY [facility] Atorvastatin Calcium 40 mg 07/12/21 22:00 Atorvastatin 40 Mg Tab PO QHS [facility] Clopidogrel Bisulfate 75 mg 07/14/21 10:00 Clopidogrel 75 Mg Tab PO QDAY [facility] Hydromorphone HCl 0.5 mg 07/12/21 21:51 Hydromorphone 1 Mg/1 Ml Inj IV Q3H PRN Pain , Severe (7-10) Isosorbide Mononitrate 30 mg 07/13/21 15:00 Isosorbide Mononitrate Er 30 Mg Tab PO QDAY OK Morphine Sulfate 2 mg 07/12/21 21:51 Morphine 2 Mg/1 Ml Inj IV Q4H PRN Pain, Moderate (4-6) Nitroglycerin 0.4 mg 07/12/21 21:51 Nitroglycerin 0.4 Mg Tab Subl SL .Q5MIN PRN Chest Pain Ondansetron HCl 4 mg 07/12/21 21:51 Ondansetron 4 Mg/2 Ml Inj IV Q8H PRN Nausea And Vomiting Tramadol HCl 50 mg 07/12/21 23:01 Tramadol 50 Mg Tab PO Q4H PRN Pain, Mild (1-3) <ELOINA CAZARES - Last Filed: 07/14/21 10:18> Assessment and Plan Assessment and plan: I saw and evaluated the patient. Discussed with the nurse practitioner and agree with their findings and plan as documented in this note. Hospitalist Physical - Constitutional Vitals: Temp Pulse Resp BP Pulse Ox 98.0 F 60 18 129/80 98 07/14/21 08:10 07/14/21 08:10 07/14/21 08:10 07/14/21 08:10 07/14/21 08:23 HEART Score - HEART Score Troponin: Troponin T 0.362 ng/mL (0.00-0.029) H* D 07/13/21 05:49 Results - Labs CBC & Chem 7: 07/14/21 04:43 07/14/21 04:43 Labs: Laboratory Last Values WBC 5.4 K/mm3 (4.5-11.0) 07/14/21 04:43 RBC 4.75 M/mm3 (3.65-5.03) 07/14/21 04:43 Hgb 11.5 gm/dl (10.1-14.3) 07/14/21 04:43 Hct 36.9 % (30.3-42.9) 07/14/21 04:43 MCV 78 fl (79-97) L 07/14/21 04:43 MCH 24 pg (28-32) L 07/14/21 04:43 MCHC 31 % (30-34) 07/14/21 04:43 RDW 18.0 % (13.2-15.2) H 07/14/21 04:43 Plt Count 195 K/mm3 (140-440) 07/14/21 04:43 Lymph % (Auto) 35.7 % (13.4-35.0) H 07/12/21 21:43 [place] % (Auto) 7.2 % (0.0-7.3) 07/12/21 21:43 Eos % (Auto) 3.0 % (0.0-4.3) 07/12/21 21:43 Baso % (Auto) 0.9 % (0.0-1.8) 07/12/21 21:43 Lymph # (Auto) 1.8 K/mm3 (1.2-5.4) 07/12/21 21:43 [place] # (Auto) 0.4 K/mm3 (0.0-0.8) 07/12/21 21:43 Eos # (Auto) 0.2 K/mm3 (0.0-0.4) 07/12/21 21:43 Baso # (Auto) 0.0 K/mm3 (0.0-0.1) 07/12/21 21:43 Seg Neutrophils % 53.2 % (40.0-70.0) 07/12/21 21:43 Seg Neutrophils # 2.7 K/mm3 (1.8-7.7) 07/12/21 21:43 PT 14.4 Sec. (12.2-14.9) 07/12/21 21:43 INR 1.01 (0.87-1.13) 07/12/21 21:43 APTT 33.7 Sec. (24.2-36.6) 07/12/21 21:43 Sodium 141 mmol/L (137-145) 07/14/21 04:43 Potassium 3.2 mmol/L (3.6-5.0) L 07/14/21 04:43 Chloride 105.2 mmol/L (98-107) 07/14/21 04:43 Carbon Dioxide 25 mmol/L (22-30) 07/14/21 04:43 Anion Gap 14 mmol/L 07/14/21 04:43 BUN 7 mg/dL (7-17) 07/14/21 04:43 Creatinine 0.5 mg/dL (0.6-1.2) L 07/14/21 04:43 Estimated GFR > 60 ml/min 07/14/21 04:43 BUN/Creatinine Ratio 14 % 07/14/21 04:43 Glucose 96 mg/dL (65-100) 07/14/21 04:43 Calcium 8.6 mg/dL (8.4-10.2) 07/14/21 04:43 Phosphorus 3.70 mg/dL (2.5-4.5) 07/14/21 04:43 Magnesium 1.50 mg/dL (1.7-2.3) L 07/14/21 04:43 Total Bilirubin 0.30 mg/dL (0.1-1.2) 07/12/21 21:43 AST 49 units/L (5-40) H 07/12/21 21:43 ALT 47 units/L (7-56) 07/12/21 21:43 Alkaline Phosphatase 73 units/L (35-129) 07/12/21 21:43 Total Creatine Kinase 389 units/L (30-135) H 07/13/21 05:49 CK-MB (CK-2) 47.3 ng/mL (0.0-4.0) H 07/13/21 05:49 CK-MB (CK-2) Rel Index 12.1 (0-4) H 07/13/21 05:49 Troponin T 0.362 ng/mL (0.00-0.029) H* D 07/13/21 05:49 Total Protein 7.2 g/dL (6.3-8.2) 07/12/21 21:43 Albumin 3.9 g/dL (3.9-5) 07/12/21 21:43 Albumin/Globulin Ratio 1.2 % 07/12/21 21:43 Triglycerides 57 mg/dL (2-149) 07/13/21 00:32 Cholesterol 176 mg/dL (50-199) 07/13/21 00:32 LDL Cholesterol Direct 105 mg/dL (50-130) 07/13/21 00:32 HDL Cholesterol 71 mg/dL (40-59) H 07/13/21 00:32 Cholesterol/HDL Ratio 2.47 % 07/13/21 00:32 HCG, Quant < 2 mIU/mL (0-4) 07/12/21 21:43 Blood Type A POSITIVE 07/12/21 21:43 Antibody Screen Negative 07/12/21 21:43 Lopez/IV: Voiding Method External Female Catheter Active Medications - Current Medications Current Medications: Generic Name Dose Route Start Last Admin Trade Name Freq PRN Reason Stop Dose Admin Acetaminophen 650 mg 07/12/21 21:51 Acetaminophen 325 Mg Tab PO Q4H PRN Fever >100.5/HUGHES Albuterol 2.5 mg 07/12/21 21:51 Albuterol 2.5 Mg/3 Ml Nebu IH Q3HRT PRN Shortness Of Breath Albuterol/Ipratropium 1 ampul 07/13/21 02:00 07/14/21 09:44 Ipratropium/Albuterol Sulfate 3 Ml Ampul.Neb IH Not Given Q6HRT [facility] Aspirin 81 mg 07/13/21 15:00 07/14/21 09:06 Aspirin Ec 81 Mg Tab PO Not Given QDAY [facility] Atorvastatin Calcium 40 mg 07/12/21 22:00 07/14/21 09:03 Atorvastatin 40 Mg Tab PO Not Given QHS [facility] Clopidogrel Bisulfate 75 mg 07/14/21 10:00 Clopidogrel 75 Mg Tab PO QDAY [facility] Famotidine 20 mg 07/13/21 22:00 07/13/21 22:14 Famotidine 20 Mg Tab PO Not Given BID [facility] Magnesium Sulfate 2 gm in 50 mls @ 25 mls/hr 07/14/21 10:00 Magnesium Sulfate 2gm/50ml IV 07/14/21 11:59 ONCE ONE Isosorbide Mononitrate 30 mg 07/13/21 15:00 07/14/21 09:06 Isosorbide Mononitrate Er 30 Mg Tab PO Not Given QDAY [facility] Morphine Sulfate 2 mg 07/12/21 21:51 Morphine 2 Mg/1 Ml Inj IV Q4H PRN Pain, Moderate (4-6) Nitroglycerin 0.4 mg 07/12/21 21:51 Nitroglycerin 0.4 Mg Tab Subl SL .Q5MIN PRN Chest Pain Ondansetron HCl 4 mg 07/12/21 21:51 Ondansetron 4 Mg/2 Ml Inj IV Q8H PRN Nausea And Vomiting Potassium Chloride 40 meq 07/14/21 10:00 Potassium Chloride Er 20 Meq Tab PO 07/14/21 14:01 Q4H OK Tramadol HCl 50 mg 07/12/21 23:01 Tramadol 50 Mg Tab PO Q4H PRN Pain, Mild (1-3)
[2021-07-13] MEDS: FAMOTIDINE 20 MG TAB PO SCH ×2 (22:07→22:14)
[2021-07-14 06:00] LABS: Hematocrit 36.9 % (30.3-42.9); Hemoglobin 11.5 gm/dl (10.1-14.3); Mean Corpuscular HGB Conc 31 % (30-34); Mean Corpuscular Volume 78 fl (79-97); Platelet Count 195 K/mm3 (140-440); Red Blood Count 4.75 M/mm3 (3.65-5.03)
[2021-07-14 06:08] LABS: BUN/Creatinine Ratio 14; Blood Urea Nitrogen 7 mg/dL (7-17); Calcium 8.6 mg/dL (8.4-10.2); Hemolysis Index 7
[2021-07-14] MEDS: IPRATROPIUM/ALBUTEROL SULFATE 3 ML AMPUL.NEB IH SCH ×4 (09:05→09:44)
[2021-07-14] MEDS: ASPIRIN EC 81 MG TAB PO SCH ×2 (09:06→11:18)
[2021-07-14] MEDS: CLOPIDOGREL 300 MG TAB PO ONE (09:07)
[2021-07-14] MEDS ORDERED: CLOPIDOGREL 75 MG TAB PO SCH (10:00)
[2021-07-14] MEDS ORDERED: MAGNESIUM SULFATE 2 GM/50 ML BAG IV ONE (10:00)
[2021-07-14] MEDS: FAMOTIDINE 20 MG TAB PO SCH (11:18)
[2021-07-14] MEDS: POTASSIUM CHLORIDE ER 20 MEQ TAB PO SCH ×2 (11:18→16:40)
--- NOTE | 2021-07-14 11:27 | Progress Note ---
Assessment and Plan - Patient Problems (1) Chest pain Current Visit: Yes Status: Acute Plan to address problem: Patient presented to the hospital with chest pain and EKG evidence of an acute inferior ST elevation myocardial infarction. Cardiac catheterization showed essentially angiographically normal coronary arteries. Subsequent clinical profile of elevated troponin levels and pseudonormalization of the inferior ST elevation suggests a myocardial infarction unrelated to a fixed coronary stenosis, but instead possibly transient coronary spasm or transient coronary thrombosis. The patient will be treated with dual oral antiplatelet therapy of aspirin and Plavix, isosorbide mononitrate, and a statin. We will hold off on beta-shelia therapy due to resting sinus bradycardia and the underlying suspicion for coronary artery spasm. Patient is stable for cardiac discharge on current medications as recommended, follow-up in our cardiology office in 7 to 10 days. Subjective Date of service: 07/14/21 Interval history: Patient is comfortable, no cardiac complaints, no chest pain or shortness of breath. Looks and feels well. Right radial and right femoral cath sites well- healed, no hematoma. There is a normal sinus rhythm at 72. Objective Vital Signs Temp Pulse Pulse Resp BP Pulse Ox 07/14/21 08:23 98 07/14/21 08:10 98.0 F 60 18 129/80 99 07/14/21 03:32 98.5 F 59 L 18 129/88 98 07/14/21 01:00 60 14 127/80 98 07/14/21 00:30 75 16 127/79 97 07/14/21 00:00 100.1 F H 68 74 16 127/79 100 07/13/21 23:30 66 17 125/76 98 07/13/21 23:22 66 17 125/76 98 07/13/21 23:00 67 16 125/76 97 07/13/21 22:30 64 16 141/87 99 07/13/21 22:00 64 11 L 141/87 99 07/13/21 21:30 69 17 146/85 98 07/13/21 21:03 99 07/13/21 21:00 64 18 146/85 99 07/13/21 20:30 68 12 145/87 98 07/13/21 20:00 100.6 F H 70 74 14 145/87 100 07/13/21 19:30 79 15 144/85 100 07/13/21 19:00 68 15 144/85 99 07/13/21 18:30 77 16 136/85 100 07/13/21 18:00 63 16 136/85 100 07/13/21 17:30 61 15 144/89 100 07/13/21 17:00 58 L 15 144/89 98 07/13/21 16:30 65 15 142/86 98 07/13/21 16:00 99.5 F 59 L 15 142/86 100 07/13/21 15:30 63 14 150/81 100 07/13/21 15:00 65 16 150/81 96 07/13/21 14:30 67 18 149/90 99 07/13/21 14:00 80 26 H 149/90 99 07/13/21 13:30 62 19 148/77 99 07/13/21 13:00 63 18 148/77 100 07/13/21 12:30 68 18 136/84 100 07/13/21 12:00 97.8 F 73 12 136/84 98 07/13/21 11:30 59 L 14 140/87 100 - Physical Examination General: No Apparent Distress HEENT: Positive: PERRL Neck: Positive: neck supple Cardiac: Positive: Reg Rate and Rhythm Lungs: Positive: clear to auscultation Neuro: Positive: Grossly Intact Abdomen: Positive: Soft Skin: Positive: Clear Extremities: Absent: edema - Labs and Meds CBC 07/14/21 Range/Units 04:43 WBC 5.4 (4.5-11.0) K/mm3 RBC 4.75 (3.65-5.03) M/mm3 Hgb 11.5 (10.1-14.3) gm/dl Hct 36.9 (30.3-42.9) % Plt Count 195 (140-440) K/mm3 Comprehensive Metabolic Panel 07/14/21 Range/Units 04:43 Sodium 141 (137-145) mmol/L Potassium 3.2 L (3.6-5.0) mmol/L Chloride 105.2 (98-107) mmol/L Carbon Dioxide 25 (22-30) mmol/L BUN 7 (7-17) mg/dL Creatinine 0.5 L (0.6-1.2) mg/dL Glucose 96 (65-100) mg/dL Calcium 8.6 (8.4-10.2) mg/dL
--- NOTE | 2021-07-14 12:20 | Discharge Summary ---
Providers - Providers Date of Admission: 07/12/21 21:51 Attending physician: ROGELIO ZAVALA MD 07/12/21 Consult to Cardiac Rehabilitation [CONS] Routine Reason For Exam: Phase 1 07/12/21 21:30 Consult to Physician [CONS] Urgent Comment: Consulting Provider: JACKIE VALDEZ Physician Instructions: Reason For Exam: stemi 07/12/21 23:01 Consult to Cardiac Rehabilitation [CONS] Routine Reason For Exam: Cardiac Rehab Evaluation Primary care physician: DAIRY TECHNOLOGIST Hospitalization Condition: Critical Disposition: 30 STILL A PATIENT Exam - Constitutional Vitals: Temp Pulse Resp BP Pulse Ox 98.0 F 60 18 129/80 98 07/14/21 08:10 07/14/21 08:10 07/14/21 08:10 07/14/21 08:10 07/14/21 08:23 Plan Care Plan Goals: Please follow-up in the allergist/immunologist physician office within 1-2 weeks. Please find a primary care doctor as soon as possible. Please start taking all medications as prescribed to you. If you experience similar chest pain, please come back to the emergency department. Follow up with: QUIANA BARRY MD [Primary Care Provider] - 3-5 Days JACKIE VALDEZ MD [Staff Physician] - 10 Days Prescriptions: AtorvaSTATin [Lipitor] 40 mg PO QHS 30 Days #30 tablet Aspirin EC [Halfprin EC] 81 mg PO QDAY 30 Days #30 tablet ISOSORBIDE MONOnitrate [Imdur ER] 30 mg PO QDAY 30 Days #30 tablet Nitroglycerin [Nitrostat] 0.4 mg SL .Q5MIN PRN 30 Days #30 tablet PRN Reason: Chest Pain Clopidogrel [Plavix] 75 mg PO QDAY 30 Days #30 tablet
[2021-07-14 17:36] VITALS: BP 126/78
--- NOTE | 2021-07-15 10:10 | Electrocardiograph Report ---
[facility] Test Date: 2021-07-13 Test Time: 11:43:10 Pat Name: ZACARIAS OTTO Department: Room: A468 Gender: F [employer] Specialist: AUDELIA : 1970 Requested By: JASPREET MARTIN Order Number: [id number] Reading MD: Joanne Valerio Measurements Intervals [place] Rate: 60 P: 58 CO: 180 QRS: 28 QRSD: 98 T: 55 QT: 437 QTc: 438 Interpretive Statements Sinus rhythm Compared to ECG 07/12/2021 21:23:[address] elevation infarct is no longer evident Electronically Signed On 07-15-2021 10:10:04 EST by Joanne Valerio
== END 2021-07-14 18:30 | disposition home or self-care (01) | DRG 282 ==
LOC: ED 21:24 → CC1 21:51 → 4A 07-14 01:31
PROVIDERS: ADMIT Hospitalist; ATTEND Student in an Organized Health Care Education/Training Program
DX: I21.19 ST elevation (STEMI) myocardial infarction involving other coronary artery of inferior wall (principal); E87.6 Hypokalemia
CPT/HCPCS: 36415; 71045; 80048; 80053; 80061; 82550; 82553; 83735; 84100; 84484; 84702; 85025; 85027; 85610; 85730; 86850; 86900; 86901; 93005; 93010; 93458; G0378; J1815; J3490; Q0162; C1760; C1887; C1894; J1644; J2250; J2270; J2405; J3010; J3475; J7030; J7040; Q9967